=== PATIENT | female | born 1955 | race Caucasian/White ===

== ENCOUNTER 2021-12-04 11:11 | Emergency (ER) | payer OTHER, SELFPAY ==
--- NOTE | ~2021-12-04 | XR_ITS ---
EXAMINATION: XR FINGER, LEFT CLINICAL INFORMATION: Second digit laceration. COMPARISON: None TECHNIQUE: 3 views of left second digit. FINDINGS: There is loss of PIP and DIP joint space without any visible acute fracture or dislocation. No soft tissue laceration, foreign body or swelling seen of the second digit. XR/XR finger LT min 2V IMPRESSION: Unremarkable left second digit. 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
[2021-12-04 11:21] VITALS: BP 136/68; PULSE 81; RESP 18; TEMP 36.6; O2SAT 98; BMI 30.5
--- NOTE | 2021-12-04 13:28 | ED_ITS ---
HPI - Wound/Laceration General Chief Complaint: Wound/Laceration Stated Complaint: laceration on Index finger/on blood thinners Time Seen by Provider: 12/04/21 12:09 Source: patient Mode of arrival: ambulatory Limitations: no limitations History of Present Illness HPI narrative: Patient is a 66 year old female presenting to the emergency department today with a left index finger laceration. Patient states that the lid of a cat food container cut her finger today. Patient states that she is on Eliquis. Patient states that she just had her tetanus shot last year. Patient denies any dizziness, lightheadedness, abdominal pain, nausea, vomiting, fever, chills, blurry vision, double vision, loss of vision, chest pain, difficulty breathing, shortness of breath, back pain, night sweats, pain with urination, increased urinary frequency, increased urinary urgency, blood in her urine or stool, syncope or a near syncopal episode, bowel incontinence, bladder incontinence, bowel retention, bladder retention, or any other complaints at this time. Onset (ago): minute(s) Location: other (left index finger) Place: home Patient tetanus UTD: Yes Context: accidental Associated symptoms: none Related Data Previous Rx's Medication Instructions Recorded cephalexin 500 mg capsule 500 mg PO Q6H 7 Days #28 cap 12/04/21 Allergies Allergy/AdvReac Type Severity Reaction Status Date / Time From DEMEROL Allergy Unknown VOMITING Uncoded 10/29/20 14:16 Review of Systems Constitutional: Constitutional: Reports no additional constitutional complaints, Denies chills, Denies fever(s) and Denies night sweats Eyes: Eyes: Reports no additional eye complaints, Denies blurry vision, Denies change in vision, Denies diplopia, Denies eye discharge, Denies loss of vision and Denies eye pain ENT: Denies dizziness Cardiovascular: Cardiovascular: Reports no additional cardiovascular complaints, Denies chest pain, Denies lightheadedness, Denies Loss of Consciousness and Denies dyspnea Respiratory: Respiratory: Reports no additional respiratory complaints and Denies dyspnea Gastrointestinal: Gastrointestinal: Reports no additional gastrointestinal complaints, Denies abdominal pain, Denies melena, Denies hematochezia, Denies change in bowel habits and Denies change in stool character Genitourinary: Genitourinary: Denies hematuria, Denies urinary frequency, Denies dysuria, Denies urinary incontinence, Denies urinary hesitancy and Denies urinary urgency Musculoskeletal: Musculoskeletal: Reports no additional musculoskeletal complaints, Denies numbness and Denies tingling Integumentary/Breasts: Comments: left index finger laceration Neurologic: Denies dizziness, Denies loss of vision, Denies numbness and Denies tingling Psychiatric: Psychiatric: Reports no additional psychiatric complaints Endocrine: Endocrine: Reports no additional endocrine complaints Hematologic/Lymphatic: Hematologic/Lymphatic: Reports no additional hematologic/lymphatic complaints Allergic/Immunologic: Allergic/Immunologic: Reports no additional allergic/immunologic complaints PMFSH Past Medical History Attestation statement: The following information was validated with the patient. Source: old records reviewed Social History Social History Advance Directives: No Advance Directives Information Provided: No Physical Exam Vital Signs: Vital Signs: Last Vital Signs Temp 98 F 12/04/21 11:21 Pulse 81 12/04/21 11:21 Resp 18 12/04/21 11:21 BP 136/68 12/04/21 11:21 Pulse Ox 98 12/04/21 11:21 BMI result Body Mass Index 30.5 Const: General: cooperative, no acute distress, alert and awake Nutritional Appearance: well nourished Orientation/consciousness: patient oriented x3 Limitations: no limitations HEENT: Head: Yes normal to inspection and Yes atraumatic Ears: hearing grossly normal bilaterally and external ears normal General nose exam: Normal external nose present, no nasal discharge noted and no epistaxis Face and sinus: Yes normal facial exam, No abrasion and No laceration Mouth: Normal oral and palatal mucosa present, no drooling and no muffled voice Eyes: General: appearance normal, both eyes and all related structures Periorbital: periorbital findings normal Eyelids: Yes eyelids normal Conjunctivae: conjunctivae normal Pupils: Equal, round and reactive pupils present EOM: EOMs intact bilaterally Neck: Neck: Yes normal visual inspection, Yes full ROM and Yes no lymphadenopathy Chest: Chest palpation & inspection: normal inspection of the chest Resp: Effort & Inspection: normal respiratory effort and able to speak in complete sentences Auscultation: clear to auscultation bilaterally Cardio: Rate: regular rate Rhythm: regular rhythm GI: Inspection: Yes normal to inspection Skin: Other: small, superficial laceration to the left index finger just superior to the MCP joint Neuro: General: patient oriented x3 and moves all extremities Cranial nerves: Yes Equal, round and reactive pupils present Cognition (Neuro): normal cognition Motor exam (neuro): 5/5 motor strength present throughout Sensory Exam: Normal double simultaneous stimulation for sensation Coordination: [id number] test normal Extrem: General: Yes normal to inspection, Yes full ROM and Yes capillary refill normal Psych: Appearance: grossly normal Mental Status: mental status grossly normal Affect: normal affect Attitude: cooperative Thought process: Normal thought process present Thought content: Normal thought content present Insight: Good insight present (Psych) MDM - Wound/Laceration MDM Narrative Medical decision making narrative: Patient is a 66 year old female presenting to the emergency department today with right index finger. Patient's physical exam showed a small, superficial laceration to the left index finger with no active bleeding. ROM, circulation, strength, and sensation was intact to the entire left upper extremity. Patient's left hand x-ray showed no acute process. I explained my physical exam findings as well as all test results to the patient. I answered all questions asked by the patient. Patient's laceration was repaired with dermabond and was dressed appropriately. I stressed the importance of the patient taking her medication as prescribed. I stressed the importance of the patient following up with her primary care provider. I stressed the importance of the patient returning to the emergency department immediately if her symptoms were to worsen or if she were to develop any dizziness, shortness of breath, difficulty breathing, chest pain, blurry vision, loss of vision, nausea, vomiting, abdominal pain, fever, chills, back pain, or any other complaints. Patient verbalized agreement and understanding with this treatment plan and discharge. Differential Diagnosis Differential diagnosis: Likely laceration Medical Records Attestation: I reviewed the patient's medical records. Imaging Data Left hand x-ray: Attestation: I personally reviewed and interpreted this imaging study as follows: My impression: No acute process. Radiologist's impression: EXAMINATION: XR FINGER, LEFT CLINICAL INFORMATION: Second digit laceration.? COMPARISON: None? TECHNIQUE: 3 views of left second digit. FINDINGS: There is loss of PIP and DIP joint space without any visible acute fracture or dislocation. No soft tissue laceration, foreign body or swelling seen of the second digit.? XR/XR finger LT min 2V IMPRESSION: Unremarkable left second digit. ? 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 Dictated By: Jose Angel Humphrey MD Signed By: Electronically signed by Jose Angel Humphrey MD 12/04/21 1347 Procedures Laceration Laceration 1: Site: other (index finger) Side (If applicable): left Size (cm): 0.25 Description: linear Depth: simple, single layer Pre-repair: irrigated extensively Skin layer closed with: other (dermabond) Discharge Plan Discharge Clinical Impression: Laceration Patient Disposition: Home, Self-Care Additional Instructions: DO NOT SOAK THE REPAIRED AREA. Follow up with your primary care provider. Return to the emergency department immediately if your symptoms worsen or if you develop any dizziness, shortness of breath, difficulty breathing, chest pain, blurry vision, loss of vision, nausea, vomiting, abdominal pain, fever, chills, back pain, or any other complaints. Prescriptions: New cephalexin 500 mg capsule 500 mg PO Q6H 7 Days Qty: 28 0RF Referrals: Jose Alberto Matute MD [Primary Care Provider] - Interventions: ED Discharge Assessment Last Done: 12/04/21 14:38 Discharge Date/Time: 12/04/21 14:40 Print Language: Colombian
== END 2021-12-04 14:40 | disposition home or self-care (01) ==
PROVIDERS: Emergency Provider Emergency Medicine; PCP Internal Medicine
DX: S61.211A Laceration without foreign body of left index finger without damage to nail, initial encounter (principal); Z79.01 Long term (current) use of anticoagulants; W26.8XXA Contact with other sharp object(s), not elsewhere classified, initial encounter; Y93.9 Activity, unspecified; Y92.009 Unspecified place in unspecified non-institutional (private) residence as the place of occurrence of the external cause; Y99.9 Unspecified external cause status
CPT/HCPCS: 12001; 73140; 99284